=== PATIENT | female | born 1950 | race African-American/Black ===

== ENCOUNTER 2024-07-26 19:26 | Inpatient (IN) | payer OTHER ==
[~2024-07-26] VITALS: Ht 165.1 cm; Wt 166.5 kg
[2024-07-26 04:00] VITALS: O2SAT 50
[2024-07-26 19:50] VITALS: BP_SYST 108; PULSE 90; RESP 26; TEMP 98; O2SAT 60
[2024-07-26 20:33] LABS: BASOPHILS % (AUTO) 0.3 % (0.0-2.0); HEMATOCRIT 41.9 % (36-48); HEMOGLOBIN 12.6 g/dL (12.0-16.0); LYMPHOCYTES # (AUTO) 1.1 K/uL (1.0-5.5); LYMPHOCYTES % (AUTO) 11.7 % (20.5-51.5); MEAN CORPUSCULAR HEMOGLOBIN 20 pg (27-31); MEAN CORPUSCULAR HGB CONC 30 % (32-36); MEAN CORPUSCULAR VOLUME 65 fL (79.0-98.0); MONOCYTES # (AUTO) 0.9 K/uL (0.0-1.0); MONOCYTES % (AUTO) 9.9 % (1.7-9.3); NEUTROPHILS # (AUTO) 7.4 K/uL (1.8-7.7); NEUTROPHILS % (AUTO) 78.1 % (40.0-70.0); PLATELET COUNT (AUTO) 237 K/uL (130-430); RED CELL DISTRIBUTION WIDTH 22.2 % (9.0-15.0); WHITE BLOOD COUNT (AUTO) 9.5 K/uL (4.8-10.8)
[2024-07-26 20:58] LABS: ALANINE AMINOTRANSFERASE 1598 U/L (12-78); ALBUMIN 3.1 g/dL (3.4-4.8); ANION GAP 7 (5-15); BILIRUBIN,DIRECT 0.5 mg/dL (0.0-0.3); CALCIUM 8.1 mg/dL (8.4-11.0); CARBON DIOXIDE 35 mmol/L (23-29); CHLORIDE 103 mmol/L (98-107); CREATININE 2.42 mg/dL (0.55-1.30); GLUCOSE 129 mg/dL (74-106); POTASSIUM 5.2 mmol/L (3.5-5.1); SODIUM SERUM 145 mmol/L (136-145); TOTAL BILIRUBIN 0.8 mg/dL (0.0-1.0); TOTAL PROTEIN, SERUM 8.6 g/dL (6.4-8.3); UREA NITROGEN, BLOOD 60 mg/dL (8-21)
[2024-07-26 21:15] LABS: ASPARTATE AMINOTRANSFERASE 2185 U/L (10-37)
[2024-07-26 21:35] LABS: INR 1.2 (0.8-1.2); PROTHROMBIN TIME 12.8 SECS (9.5-12.5)
[2024-07-26 21:55] LABS: ANISOCYTOSIS 3+; HYPOCHROMASIA 2+
[2024-07-26 21:57] LABS: TARGET CELLS FEW; TEAR DROP CELLS FEW
[2024-07-26 21:58] LABS: OVALOCYTES FEW; STOMATOCYTES MODERATE
[2024-07-26] MEDS: FUROSEMIDE 40 MG/4 ML VIAL IVP ONE (22:41)
[2024-07-26] MEDS ORDERED: ALBU2.5V7 INH (23:02)
[2024-07-26] MEDS ORDERED: cefTRIAXone 1 GM VIAL ONE (23:02)
[2024-07-26] MEDS: SODIUM BICARBONATE 8.4% JECT 50 MEQ/50 ML SYRINGE IVP ONE (23:16)
[2024-07-26] MEDS: cefTRIAXone 1 GM in D5W 50 ML IV ONE (23:16)
[2024-07-26] MEDS: CALCIUM CHLORIDE 1 GM in NS 100 ML IV ONE (23:17)
[2024-07-26] MEDS ORDERED: CALCIUM CHLORIDE 1 GM/10 ML DISP.SYRIN (14 mEq Ca++/SYR) ONE (23:18)
[2024-07-27] VITALS (38 sets, daily range): BP systolic 109–176; PULSE 60–118; RESP 18–31; TEMP 97.6–98.7; O2SAT 92–100
[2024-07-27 00:58] LABS: INFLUENZA TYPE B NEGATIVE (NEGATIVE)
[2024-07-27 01:00] LABS: INFLUENZA TYPE A POSITIVE (NEGATIVE)
[2024-07-27] MEDS: NACL 0.9% 1,000 ML IV ONE (02:30)
[2024-07-27] MEDS ORDERED: ETOMIDATE 20 MG/ 10 ML VIAL (AMIDATE) ONE (02:50)
[2024-07-27] MEDS ORDERED: ROCURONIUM BROMIDE 10 MG/ML (ZEMURON) ONE (02:50)
[2024-07-27 03:06] LABS: BLOOD GAS PH 7.094 (7.350-7.450)
[2024-07-27 03:07] LABS: ABG O2 SAT% ESTIMATE 89.4 % (94.0-98.0); BLOOD GAS BASE EXCESS 3.4 mmol/L (-2.0-3.0); BLOOD GAS HCO3 37.1 mmol/L (21.0-28.0); BLOOD GAS PCO2 123.9 mmHg (32.0-45.0); BLOOD GAS PO2 79.9 mmHg (83.0-108.0)
[2024-07-27 03:08] LABS: ALLEN'S TEST Y (P)
[2024-07-27] MEDS: D5/0.45 NS 1,000 ML IV SCH (04:52)
[2024-07-27] MEDS ORDERED: GLUCOSE (DEXTROSE) ORAL GEL -Adults PO PRN (05:15)
[2024-07-27] MEDS ORDERED: D5W 1,000 ML IV PRN (05:15)
[2024-07-27] MEDS ORDERED: DEXTROSE 50% JECT 50 ML DISP.SYRIN IVP PRN (05:15)
[2024-07-27 07:02] LABS: BASOPHILS % (AUTO) 0.3 % (0.0-2.0); HEMATOCRIT 38.9 % (36-48); HEMOGLOBIN 11.3 g/dL (12.0-16.0); LYMPHOCYTES # (AUTO) 1.9 K/uL (1.0-5.5); LYMPHOCYTES % (AUTO) 15.8 % (20.5-51.5); MEAN CORPUSCULAR HEMOGLOBIN 19 pg (27-31); MEAN CORPUSCULAR HGB CONC 29 % (32-36); MEAN CORPUSCULAR VOLUME 66 fL (79.0-98.0); MONOCYTES # (AUTO) 0.8 K/uL (0.0-1.0); MONOCYTES % (AUTO) 6.3 % (1.7-9.3); NEUTROPHILS # (AUTO) 9.6 K/uL (1.8-7.7); PLATELET COUNT (AUTO) 156 K/uL (130-430); RED BLOOD CELL COUNT(AUTO) 5.91 MIL/uL (4.2-6.2); WHITE BLOOD COUNT (AUTO) 12.3 K/uL (4.8-10.8)
[2024-07-27 07:20] LABS: ANION GAP 12 (5-15); CALCIUM 8.1 mg/dL (8.4-11.0); CARBON DIOXIDE 29 mmol/L (23-29); CHLORIDE 104 mmol/L (98-107); GLUCOSE 106 mg/dL (74-106); POTASSIUM 4.2 mmol/L (3.5-5.1); SODIUM SERUM 145 mmol/L (136-145)
[2024-07-27 07:21] LABS: CREATININE 2.02 mg/dL (0.55-1.30); UREA NITROGEN, BLOOD 64 mg/dL (8-21)
[2024-07-27 07:35] LABS: NEUTROPHILS % (AUTO) 77.6 % (40.0-70.0)
[2024-07-27] MEDS ORDERED: FENTANYL CITRATE-0.9 % NACL/PF 100 ML IV PRN (10:45)
[2024-07-27] MEDS ORDERED: MIDAZOLAM IN NACL,ISO-OSMOT/PF 100 ML IV PRN (10:45)
[2024-07-27 11:13] LABS: BLOOD GAS PCO2 29.9 mmHg (32.0-45.0); BLOOD GAS PH 7.586 (7.350-7.450)
[2024-07-27 11:14] LABS: ABG O2 SAT% ESTIMATE 93.5 % (94.0-98.0); ALLEN'S TEST POSITIVE (P); BLOOD GAS BASE EXCESS 12.8 mmol/L (-2.0-3.0); BLOOD GAS HCO3 27.8 mmol/L (21.0-28.0); BLOOD GAS PO2 56.1 mmHg (83.0-108.0)
[2024-07-27] MEDS: PIPERACILLIN/TAZOBACTAM 2.25 GM in D5W 50 ML IV SCH (11:39)
[2024-07-27] MEDS ORDERED: MORPHINE 2 MG/ML INJ. SYRINGE IVP PRN (12:00)
[2024-07-27] MEDS ORDERED: NALOXONE HCL 0.4 MG/ML AMP (NARCAN) IVP PRN (12:00)
[2024-07-27] MEDS ORDERED: ONDANSETRON HCL 4 MG/2 ML VIAL IVP PRN (12:00)
[2024-07-27] MEDS: FENTANYL CITRATE-0.9 % NACL/PF 100 ML IV PRN (12:02)
[2024-07-27] MEDS: MIDAZOLAM IN NACL,ISO-OSMOT/PF 100 ML IV PRN (12:04)
[2024-07-27 13:50] LABS: BILIRUBIN,URINE NEGATIVE (NEGATIVE); BLOOD, URINE 1+ (NEGATIVE); CLARITY/URINE CLEAR (CLEAR); COLOR,URINE YELLOW (YELLOW); GLUCOSE,URINE NEGATIVE (NEGATIVE); KETONES,URINE NEGATIVE (NEGATIVE); LEUKOCYTE ESTERASE ,URINE 1+ (NEGATIVE); NITRITE, URINE NEGATIVE (NEGATIVE); PROTEIN URINE 2+ (NEGATIVE)
[2024-07-27 14:02] LABS: RBC,URINE 0-3 /HPF (0-3)
[2024-07-27 14:03] LABS: BACTERIA,URINE MODERATE /HPF (None Seen); FINE GRANULAR CASTS,URINE 0-10 /LPF (None Seen)
[2024-07-27] MEDS: HEPARIN SODIUM,PORCINE 5,000 UNITS/ML VIAL SUBCUT SCH (14:47)
[2024-07-27] MEDS: IPRATROPIUM/ALBUTEROL SULFATE 3 ML AMPUL.NEB (DUONEB) INH SCH (15:44)
[2024-07-27] MEDS: OSELTAMIVIR PHOSPHATE 6 MG/1 ML, 60 ML SUSP PO SCH (21:37)
[2024-07-27] MEDS: AZITHROMYCIN 500 MG in NS 250 ML IV ONE (21:38)
[2024-07-27] MEDS: FUROSEMIDE 40 MG/4 ML VIAL IVP SCH (21:38)
[2024-07-27] MEDS: METHYLPREDNISOLONE SOD SUCC 40 MG/ML VIAL IVP SCH (21:45)
[2024-07-27 23:24] LABS: URINE SODIUM, RANDOM 38 mmol/L (40-220)
[2024-07-28] VITALS (32 sets, daily range): BP systolic 114–164; PULSE 65–84; RESP 15–22; TEMP 97.7–98.8; O2SAT 94–99
[2024-07-28 00:01] LABS: INR 1.3 (0.8-1.2); PROTHROMBIN TIME 13.5 SECS (9.5-12.5)
[2024-07-28] MEDS: PANTOPRAZOLE SODIUM 40 MG/VIAL (PROTONIX) IVP SCH (08:20)
[2024-07-28 08:21] LABS: HEMATOCRIT 40.3 % (36-48); MEAN CORPUSCULAR HEMOGLOBIN 19 pg (27-31); MEAN CORPUSCULAR HGB CONC 30 % (32-36); MEAN CORPUSCULAR VOLUME 64 fL (79.0-98.0); PLATELET COUNT (AUTO) 131 K/uL (130-430); RED BLOOD CELL COUNT(AUTO) 6.27 MIL/uL (4.2-6.2); RED CELL DISTRIBUTION WIDTH 21.5 % (9.0-15.0); WHITE BLOOD COUNT (AUTO) 8.3 K/uL (4.8-10.8)
[2024-07-28 08:24] LABS: ALANINE AMINOTRANSFERASE 1062 U/L (12-78); ALBUMIN 2.4 g/dL (3.4-4.8); ANION GAP 8 (5-15); ASPARTATE AMINOTRANSFERASE 642 U/L (10-37); CALCIUM 7.9 mg/dL (8.4-11.0); CARBON DIOXIDE 36 mmol/L (23-29); CHLORIDE 110 mmol/L (98-107); CREATININE 1.03 mg/dL (0.55-1.30); GLUCOSE 91 mg/dL (74-106); PHOSPHORUS 1.2 mg/dL (2.7-4.5); SODIUM SERUM 154 mmol/L (136-145); TOTAL BILIRUBIN 1.6 mg/dL (0.0-1.0); TOTAL PROTEIN, SERUM 6.6 g/dL (6.4-8.3); UREA NITROGEN, BLOOD 40 mg/dL (8-21)
[2024-07-28 08:30] LABS: POTASSIUM 2.9 mmol/L (3.5-5.1)
[2024-07-28 08:32] LABS: ABG O2 SAT% ESTIMATE 96.6 % (94.0-98.0); ALLEN'S TEST POSITIVE (P); BLOOD GAS BASE EXCESS 11.1 mmol/L (-2.0-3.0); BLOOD GAS HCO3 34.9 mmol/L (21.0-28.0); BLOOD GAS PCO2 42.5 mmHg (32.0-45.0); BLOOD GAS PH 7.532 (7.350-7.450); BLOOD GAS PO2 77.4 mmHg (83.0-108.0)
[2024-07-28 10:12] LABS: ATYPICAL LYMPHOCYTES % 4 % (0-0); BAND % (MANUAL) 13 % (0-6); LYMPHOCYTES % (MANUAL) 8 % (20-46)
[2024-07-28 10:13] LABS: ANISOCYTOSIS 2+; BASOPHILS % (MANUAL) 0 % (0-2); EOSINOPHILS % (MANUAL) 0 % (0-7); HYPOCHROMASIA 2+; MONOCYTES % (MANUAL) 4 % (0-11); OVALOCYTES FEW; PLATELET ESTIMATE ADEQUATE (ADEQUATE); TARGET CELLS FEW
[2024-07-28] MEDS: KCL 40 mEq in 100 mL (PREMIX) 100 ML IV ONE (14:00)
[2024-07-28] MEDS: D5W 1,000 ML IV SCH (18:10)
[2024-07-28] MEDS: METHYLPREDNISOLONE SOD SUCC 40 MG/ML VIAL IVP SCH (20:58)
[2024-07-28] MEDS: INSULIN REGULAR, HUMAN 100 UNITS/ML, 3 ML VIAL (humuLIN R) SUBCUT PRN (21:02)
[2024-07-29] VITALS (34 sets, daily range): BP systolic 104–164; PULSE 57–94; RESP 14–22; TEMP 97.8–100.4; O2SAT 93–97
[2024-07-29 08:07] LABS: HEPATITIS A AB, IgM Negative (Negative); HEPATITIS B SURFACE AG Negative (Negative); HEPATITIS C VIRUS AB Non Reactive (Non Reactive)
[2024-07-29 08:37] LABS: ERYTHROCYTE SEDIMENTATION RATE 66 MM/HR (0-20)
[2024-07-29 08:42] LABS: BASOPHILS % (AUTO) 0.2 % (0.0-2.0); EOSINOPHILS % (AUTO) 0.1 % (0.0-4.0); LYMPHOCYTES # (AUTO) 0.3 K/uL (1.0-5.5); LYMPHOCYTES % (AUTO) 4.6 % (20.5-51.5); MEAN CORPUSCULAR HEMOGLOBIN 19 pg (27-31); MEAN CORPUSCULAR HGB CONC 30 % (32-36); MEAN CORPUSCULAR VOLUME 64 fL (79.0-98.0); MONOCYTES # (AUTO) 0.7 K/uL (0.0-1.0); MONOCYTES % (AUTO) 10.3 % (1.7-9.3); RED BLOOD CELL COUNT(AUTO) 6.24 MIL/uL (4.2-6.2); RED CELL DISTRIBUTION WIDTH 21.8 % (9.0-15.0); WHITE BLOOD COUNT (AUTO) 7.1 K/uL (4.8-10.8)
[2024-07-29] MEDS: FUROSEMIDE 40 MG/4 ML VIAL IVP SCH (08:49)
[2024-07-29] MEDS: acetaZOLAMIDE 250 MG TABLET (DIAMOX) PO SCH (08:49)
[2024-07-29 09:01] LABS: ALBUMIN 2.3 g/dL (3.4-4.8); ANION GAP 3 (5-15); CALCIUM 8.2 mg/dL (8.4-11.0); CARBON DIOXIDE 39 mmol/L (23-29); CHLORIDE 109 mmol/L (98-107); CREATININE 1.28 mg/dL (0.55-1.30); GLUCOSE 256 mg/dL (74-106); POTASSIUM 3.2 mmol/L (3.5-5.1); SODIUM SERUM 151 mmol/L (136-145); TOTAL PROTEIN, SERUM 7.3 g/dL (6.4-8.3); UREA NITROGEN, BLOOD 35 mg/dL (8-21)
[2024-07-29 09:12] LABS: ASPARTATE AMINOTRANSFERASE 231 U/L (10-37)
[2024-07-29 09:13] LABS: ALANINE AMINOTRANSFERASE 835 U/L (12-78)
[2024-07-29 09:15] LABS: NEUTROPHILS % (AUTO) 84.8 % (40.0-70.0)
[2024-07-29 09:16] LABS: PLATELET COUNT (AUTO) 105 K/uL (130-430)
[2024-07-29 09:20] LABS: BLOOD GAS HCO3 36.6 mmol/L (21.0-28.0); BLOOD GAS PCO2 42.3 mmHg (32.0-45.0); BLOOD GAS PH 7.555 (7.350-7.450); BLOOD GAS PO2 67.5 mmHg (83.0-108.0)
[2024-07-29 09:21] LABS: ABG O2 SAT% ESTIMATE 95.4 % (94.0-98.0); ALLEN'S TEST POSITIVE (P)
[2024-07-29] MEDS ORDERED: COMMUNICATION ORDER XX ONE (12:15)
[2024-07-29] MEDS ORDERED: DEXMEDETOMIDINE HCL 200 MCG in NS 50 ML IV PRN (12:15)
[2024-07-29] MEDS: DEXMEDETOMIDINE HCL 400 MCG in NS 96 ML IV PRN (15:01)
[2024-07-29] MEDS: POTASSIUM CHLORIDE 40 MEQ in NS 250 ML IV ONE (16:51)
[2024-07-30] VITALS (35 sets, daily range): BP systolic 105–168; PULSE 56–77; RESP 14–23; TEMP 97.8–98; O2SAT 96–98
[2024-07-30 06:41] LABS: HEMOGLOBIN 12.7 g/dL (12.0-16.0); LYMPHOCYTES # (AUTO) 0.3 K/uL (1.0-5.5); LYMPHOCYTES % (AUTO) 2.8 % (20.5-51.5); MEAN CORPUSCULAR HEMOGLOBIN 19 pg (27-31); MEAN CORPUSCULAR HGB CONC 30 % (32-36); MEAN CORPUSCULAR VOLUME 64 fL (79.0-98.0); MONOCYTES # (AUTO) 0.6 K/uL (0.0-1.0); MONOCYTES % (AUTO) 6.2 % (1.7-9.3); NEUTROPHILS # (AUTO) 9.4 K/uL (1.8-7.7); PLATELET COUNT (AUTO) 96 K/uL (130-430); RED BLOOD CELL COUNT(AUTO) 6.56 MIL/uL (4.2-6.2); RED CELL DISTRIBUTION WIDTH 22.1 % (9.0-15.0); WHITE BLOOD COUNT (AUTO) 10.3 K/uL (4.8-10.8)
[2024-07-30 07:25] LABS: ERYTHROCYTE SEDIMENTATION RATE 86 MM/HR (0-20)
[2024-07-30 08:04] LABS: ALANINE AMINOTRANSFERASE 575 U/L (12-78); ALBUMIN 2.4 g/dL (3.4-4.8); ANION GAP 7 (5-15); ASPARTATE AMINOTRANSFERASE 83 U/L (10-37); CALCIUM 8.1 mg/dL (8.4-11.0); CARBON DIOXIDE 35 mmol/L (23-29); CHLORIDE 108 mmol/L (98-107); CREATININE 1.02 mg/dL (0.55-1.30); GLUCOSE 285 mg/dL (74-106); PHOSPHORUS 1.6 mg/dL (2.7-4.5); POTASSIUM 3.3 mmol/L (3.5-5.1); SODIUM SERUM 150 mmol/L (136-145); TOTAL BILIRUBIN 1.6 mg/dL (0.0-1.0); TOTAL PROTEIN, SERUM 7.4 g/dL (6.4-8.3); UREA NITROGEN, BLOOD 27 mg/dL (8-21)
[2024-07-30 08:55] LABS: ABG O2 SAT% ESTIMATE 99.4 % (94.0-98.0); BLOOD GAS BASE EXCESS 5.9 mmol/L (-2.0-3.0); BLOOD GAS HCO3 26.7 mmol/L (21.0-28.0); BLOOD GAS PCO2 27.2 mmHg (32.0-45.0); BLOOD GAS PO2 164.6 mmHg (83.0-108.0)
[2024-07-30 09:08] LABS: ALLEN'S TEST POSITIVE (P); BLOOD GAS PH 7.609 (7.350-7.450)
[2024-07-30] MEDS ORDERED: CALCIUM GLUCONATE 2 GM in NS 100 ML IV ONE (11:00)
[2024-07-30] MEDS: CALCIUM GLUCONATE 2 GM in NS 100 ML IV ONE (13:08)
[2024-07-30] MEDS: K PHOS 15 MM in NS 250 ML IV ONE (13:09)
[2024-07-31] VITALS (36 sets, daily range): BP systolic 119–159; PULSE 66–93; RESP 14–34; TEMP 97.6–99.3; O2SAT 85–98
[2024-07-31 05:29] LABS: ERYTHROCYTE SEDIMENTATION RATE 70 MM/HR (0-20)
[2024-07-31 05:32] LABS: HEMATOCRIT 40.7 % (36-48); HEMOGLOBIN 11.9 g/dL (12.0-16.0); LYMPHOCYTES # (AUTO) 0.2 K/uL (1.0-5.5); LYMPHOCYTES % (AUTO) 1.8 % (20.5-51.5); MEAN CORPUSCULAR HEMOGLOBIN 19 pg (27-31); MEAN CORPUSCULAR HGB CONC 29 % (32-36); MEAN CORPUSCULAR VOLUME 65 fL (79.0-98.0); MONOCYTES # (AUTO) 0.5 K/uL (0.0-1.0); MONOCYTES % (AUTO) 3.8 % (1.7-9.3); NEUTROPHILS # (AUTO) 11.8 K/uL (1.8-7.7); NEUTROPHILS % (AUTO) 94.4 % (40.0-70.0); PLATELET COUNT (AUTO) 75 K/uL (130-430); RED BLOOD CELL COUNT(AUTO) 6.25 MIL/uL (4.2-6.2); RED CELL DISTRIBUTION WIDTH 22.2 % (9.0-15.0); WHITE BLOOD COUNT (AUTO) 12.5 K/uL (4.8-10.8)
[2024-07-31 06:16] LABS: ALANINE AMINOTRANSFERASE 362 U/L (12-78); ALBUMIN 2.3 g/dL (3.4-4.8); ANION GAP 5 (5-15); ASPARTATE AMINOTRANSFERASE 36 U/L (10-37); CALCIUM 8.3 mg/dL (8.4-11.0); CARBON DIOXIDE 35 mmol/L (23-29); CHLORIDE 108 mmol/L (98-107); CREATININE 1.07 mg/dL (0.55-1.30); GLUCOSE 318 mg/dL (74-106); PHOSPHORUS 2.3 mg/dL (2.7-4.5); POTASSIUM 3.5 mmol/L (3.5-5.1); SODIUM SERUM 148 mmol/L (136-145); TOTAL PROTEIN, SERUM 7.1 g/dL (6.4-8.3); UREA NITROGEN, BLOOD 36 mg/dL (8-21)
[2024-07-31 10:06] LABS: ABG O2 SAT% ESTIMATE 96.1 % (94.0-98.0); BLOOD GAS BASE EXCESS 3.4 mmol/L (-2.0-3.0); BLOOD GAS HCO3 30.2 mmol/L (21.0-28.0); BLOOD GAS PH 7.351 (7.350-7.450); BLOOD GAS PO2 87.4 mmHg (83.0-108.0)
[2024-07-31 10:12] LABS: ALLEN'S TEST POSITIVE (P)
[2024-07-31 10:14] LABS: BLOOD GAS PCO2 55.9 mmHg (32.0-45.0)
[2024-07-31] MEDS: CALCIUM GLUC 2 GM/100ML-NACL 100 ML IV ONE (11:46)
[2024-07-31] MEDS: K PHOS 15 MM in NS 250 ML IV ONE (15:38)
[2024-07-31] MEDS: LORazepam 2 MG/ML VIAL IVP PRN (20:43)
[2024-07-31] MEDS: VORICONAZOLE 200 MG TABLET PO SCH (20:47)
[2024-08-01] VITALS (33 sets, daily range): BP systolic 121–176; PULSE 67–149; RESP 14–25; TEMP 97.9–99.6; O2SAT 90–97
[2024-08-01] MEDS: hydrALAZINE HCL 20 MG/ML VIAL IVP PRN (00:06)
[2024-08-01] MEDS: MORPHINE 4 MG INJ. 4 MG/ML VIAL IVP PRN (03:36)
[2024-08-01] MEDS: METOPROLOL SUCCINATE 25 MG TAB.SR.24H (TOPROL XL) PO SCH ×2 (05:42→08:21)
[2024-08-01 06:07] LABS: ERYTHROCYTE SEDIMENTATION RATE 45 MM/HR (0-20)
[2024-08-01 06:13] LABS: BASOPHILS % (AUTO) 0.1 % (0.0-2.0); HEMATOCRIT 38.7 % (36-48); HEMOGLOBIN 11.4 g/dL (12.0-16.0); LYMPHOCYTES # (AUTO) 0.3 K/uL (1.0-5.5); MEAN CORPUSCULAR HEMOGLOBIN 19 pg (27-31); MEAN CORPUSCULAR HGB CONC 30 % (32-36); MEAN CORPUSCULAR VOLUME 64 fL (79.0-98.0); MONOCYTES # (AUTO) 0.8 K/uL (0.0-1.0); MONOCYTES % (AUTO) 6.6 % (1.7-9.3); NEUTROPHILS # (AUTO) 10.6 K/uL (1.8-7.7); NEUTROPHILS % (AUTO) 90.3 % (40.0-70.0); PLATELET COUNT (AUTO) 98 K/uL (130-430); RED BLOOD CELL COUNT(AUTO) 6.01 MIL/uL (4.2-6.2); RED CELL DISTRIBUTION WIDTH 22.5 % (9.0-15.0); WHITE BLOOD COUNT (AUTO) 11.7 K/uL (4.8-10.8)
[2024-08-01 06:30] LABS: ANION GAP 6 (5-15); CALCIUM 8.5 mg/dL (8.4-11.0); CARBON DIOXIDE 35 mmol/L (23-29); CHLORIDE 107 mmol/L (98-107); CREATININE 1.13 mg/dL (0.55-1.30); GLUCOSE 332 mg/dL (74-106); POTASSIUM 3.6 mmol/L (3.5-5.1); SODIUM SERUM 148 mmol/L (136-145); UREA NITROGEN, BLOOD 48 mg/dL (8-21)
[2024-08-01 07:58] LABS: ALBUMIN 2.3 g/dL (3.4-4.8); TOTAL PROTEIN, SERUM 6.9 g/dL (6.4-8.3)
[2024-08-01 07:59] LABS: BILIRUBIN,DIRECT 0.6 mg/dL (0.0-0.3)
[2024-08-02] VITALS (34 sets, daily range): BP systolic 124–173; PULSE 60–124; RESP 14–25; TEMP 97.8–99.1; O2SAT 92–100
[2024-08-02 08:28] LABS: ALANINE AMINOTRANSFERASE 204 U/L (12-78); ALBUMIN 2.1 g/dL (3.4-4.8); ANION GAP 7 (5-15); ASPARTATE AMINOTRANSFERASE 28 U/L (10-37); CALCIUM 8.4 mg/dL (8.4-11.0); CARBON DIOXIDE 32 mmol/L (23-29); CHLORIDE 106 mmol/L (98-107); CREATININE 0.85 mg/dL (0.55-1.30); GLUCOSE 367 mg/dL (74-106); PHOSPHORUS 2.4 mg/dL (2.7-4.5); POTASSIUM 4.1 mmol/L (3.5-5.1); SODIUM SERUM 145 mmol/L (136-145); TOTAL BILIRUBIN 0.9 mg/dL (0.0-1.0); TOTAL PROTEIN, SERUM 6.5 g/dL (6.4-8.3); UREA NITROGEN, BLOOD 42 mg/dL (8-21)
[2024-08-02 10:37] LABS: BASOPHILS % (AUTO) 0.1 % (0.0-2.0); HEMATOCRIT 39.2 % (36-48); HEMOGLOBIN 11.4 g/dL (12.0-16.0); LYMPHOCYTES # (AUTO) 0.2 K/uL (1.0-5.5); LYMPHOCYTES % (AUTO) 3.3 % (20.5-51.5); MEAN CORPUSCULAR HEMOGLOBIN 19 pg (27-31); MEAN CORPUSCULAR HGB CONC 29 % (32-36); MEAN CORPUSCULAR VOLUME 65 fL (79.0-98.0); MONOCYTES # (AUTO) 0.5 K/uL (0.0-1.0); MONOCYTES % (AUTO) 7.5 % (1.7-9.3); NEUTROPHILS # (AUTO) 6.1 K/uL (1.8-7.7); NEUTROPHILS % (AUTO) 89.1 % (40.0-70.0); PLATELET COUNT (AUTO) 79 K/uL (130-430); RED CELL DISTRIBUTION WIDTH 22.7 % (9.0-15.0)
[2024-08-02 11:07] LABS: ERYTHROCYTE SEDIMENTATION RATE 25 MM/HR (0-20)
[2024-08-02 11:27] LABS: WHITE BLOOD COUNT (AUTO) 6.9 K/uL (4.8-10.8)
[2024-08-02 11:44] LABS: BLOOD GAS PH 7.359 (7.350-7.450)
[2024-08-02 11:45] LABS: ABG O2 SAT% ESTIMATE 94.4 % (94.0-98.0); ALLEN'S TEST POSITIVE (P); BLOOD GAS BASE EXCESS -3.9 mmol/L (-2.0-3.0); BLOOD GAS HCO3 30.6 mmol/L (21.0-28.0); BLOOD GAS PCO2 55.5 mmHg (32.0-45.0); BLOOD GAS PO2 75.6 mmHg (83.0-108.0)
[2024-08-02] MEDS: NA PHOS 15 MM in NS 250 ML IV ONE (12:13)
[2024-08-03] VITALS (28 sets, daily range): BP systolic 111–166; PULSE 63–129; RESP 17–26; TEMP 97.8–99.3; O2SAT 93–100
[2024-08-03 06:24] LABS: ERYTHROCYTE SEDIMENTATION RATE 34 MM/HR (0-20)
[2024-08-03 07:14] LABS: ANION GAP 7 (5-15); CALCIUM 8.8 mg/dL (8.4-11.0); CARBON DIOXIDE 31 mmol/L (23-29); CHLORIDE 106 mmol/L (98-107); CREATININE 0.74 mg/dL (0.55-1.30); GLUCOSE 255 mg/dL (74-106); SODIUM SERUM 144 mmol/L (136-145); UREA NITROGEN, BLOOD 36 mg/dL (8-21)
[2024-08-03 07:28] LABS: BASOPHILS % (AUTO) 0.1 % (0.0-2.0); HEMATOCRIT 41.6 % (36-48); HEMOGLOBIN 12.1 g/dL (12.0-16.0); LYMPHOCYTES # (AUTO) 0.2 K/uL (1.0-5.5); LYMPHOCYTES % (AUTO) 2.2 % (20.5-51.5); MEAN CORPUSCULAR HEMOGLOBIN 19 pg (27-31); MEAN CORPUSCULAR HGB CONC 29 % (32-36); MEAN CORPUSCULAR VOLUME 65 fL (79.0-98.0); MONOCYTES # (AUTO) 0.4 K/uL (0.0-1.0); MONOCYTES % (AUTO) 4.9 % (1.7-9.3); NEUTROPHILS # (AUTO) 7.3 K/uL (1.8-7.7); NEUTROPHILS % (AUTO) 92.8 % (40.0-70.0); RED BLOOD CELL COUNT(AUTO) 6.42 MIL/uL (4.2-6.2); WHITE BLOOD COUNT (AUTO) 7.8 K/uL (4.8-10.8)
[2024-08-03 09:00] LABS: PLATELET COUNT (AUTO) 99 K/uL (130-430)
[2024-08-03 09:05] LABS: ANISOCYTOSIS 2+; HYPOCHROMASIA 2+
[2024-08-03 09:48] LABS: BLOOD GAS BASE EXCESS 4.2 mmol/L (-2.0-3.0); BLOOD GAS HCO3 29.8 mmol/L (21.0-28.0); BLOOD GAS PH 7.404 (7.350-7.450); BLOOD GAS PO2 74.9 mmHg (83.0-108.0)
[2024-08-03 09:57] LABS: BLOOD GAS PCO2 48.7 mmHg (32.0-45.0)
[2024-08-03 09:58] LABS: ALLEN'S TEST POSITIVE (P)
[2024-08-09 14:07] LABS: ASPERGILLUS FLAVUS Negative (Neg:<1:1); ASPERGILLUS FUMIGATUS Negative (Neg:<1:1)
== END 2024-08-04 23:00 | DRG 870 ==
LOC: SED 19:26 → SIC 22:49 → UNDODISIN 08-03 23:00
PROVIDERS: ADMIT Preventive Medicine Preventive Medicine/Occupational Environmental Medicine; ATTEND Preventive Medicine Preventive Medicine/Occupational Environmental Medicine
PROC: 5A09357 Assistance with Respiratory Ventilation, Less than 24 Consecutive Hours, Continuous Positive Airway Pressure (ICD-10-PCS; 2024-07-26)
PROC: 5A1955Z Respiratory Ventilation, Greater than 96 Consecutive Hours (ICD-10-PCS; principal; 2024-07-27)
PROC: 5A09357 Assistance with Respiratory Ventilation, Less than 24 Consecutive Hours, Continuous Positive Airway Pressure (ICD-10-PCS; 2024-07-27)
PROC: 0BH17EZ Insertion of Endotracheal Airway into Trachea, Via Natural or Artificial Opening (ICD-10-PCS; 2024-07-27)
PROC: 5A09357 Assistance with Respiratory Ventilation, Less than 24 Consecutive Hours, Continuous Positive Airway Pressure (ICD-10-PCS; 2024-08-02)
DX: A41.9 Sepsis, unspecified organism (principal); K72.00 Acute and subacute hepatic failure without coma; I50.33 Acute on chronic diastolic (congestive) heart failure; J96.02 Acute respiratory failure with hypercapnia; E43 Unspecified severe protein-calorie malnutrition; J96.01 Acute respiratory failure with hypoxia; J10.08 Influenza due to other identified influenza virus with other specified pneumonia; J16.8 Pneumonia due to other specified infectious organisms; N39.0 Urinary tract infection, site not specified; E66.2 Morbid (severe) obesity with alveolar hypoventilation; I13.2 Hypertensive heart and chronic kidney disease with heart failure and with stage 5 chronic kidney disease, or end stage renal disease; Z68.44 Body mass index [BMI] 60.0-69.9, adult; E87.6 Hypokalemia; Z20.822 Contact with and (suspected) exposure to COVID-19; E87.5 Hyperkalemia; R74.01 Elevation of levels of liver transaminase levels; E87.70 Fluid overload, unspecified; R13.10 Dysphagia, unspecified; B96.20 Unspecified Escherichia coli [E. coli] as the cause of diseases classified elsewhere; J45.909 Unspecified asthma, uncomplicated; N18.31 Chronic kidney disease, stage 3a; D69.6 Thrombocytopenia, unspecified; E88.09 Other disorders of plasma-protein metabolism, not elsewhere classified; Z85.3 Personal history of malignant neoplasm of breast
CPT/HCPCS: 36415; 36600; 71045; 76700; 76770; 80048; 80053; 80076; 81000; 81001; 81015; 82550; 82570; 82803; 82948; 83605; 83735; 83880; 84100; 84302; 84484; 85007; 85025; 85027; 85610; 85651; 85730; 86606; 86708; 86709; 86803; 87040; 87070; 87081; 87086; 87186; 87205; 87230; 87305; 87340; 92610-GN; 93005; 93306; 94002; 94003; 94070; 94640; 94660; 94760; 99291; G9035; J0360; J0456; J0612; J0696; J1030; J1644; J1815; J1940; J2060; J2270; J2405; J2470; J2543; J3010; J3480; J3490; J7030; J7050; J7060